=== PATIENT | female | born 1940 | race Caucasian/White ===

== ENCOUNTER 2017-06-10 10:48 | Outpatient (CLI) | payer MEDICARE, BC | END 2017-06-10 10:49 | disposition home or self-care (01) | DRG 554 | LOC: CONVCARE 10:48 | PROVIDERS: ATTEND Orthopaedic Surgery | DX: M16.11 Unilateral primary osteoarthritis, right hip (principal) | CPT/HCPCS: 73502 ==

== ENCOUNTER 2017-07-08 11:18 | Outpatient (CLI) | payer MEDICARE, BC | END 2017-07-08 11:19 | disposition home or self-care (01) | DRG 556 | LOC: CONVCARE 11:18 | PROVIDERS: ATTEND Orthopaedic Surgery | DX: M25.551 Pain in right hip (principal) ==

== ENCOUNTER 2017-10-14 15:27 | Outpatient (CLI) | payer MEDICARE, BC | END 2017-10-14 15:28 | disposition home or self-care (01) | DRG 556 | LOC: CONVCARE 15:27 | PROVIDERS: ATTEND Orthopaedic Surgery | DX: M25.512 Pain in left shoulder (principal); M77.8 Other enthesopathies, not elsewhere classified | CPT/HCPCS: 73030 ==